=== PATIENT | male | born 1990 | race Caucasian/White ===

== ENCOUNTER 2023-10-26 13:14 | Emergency (ER) | payer OTHER, SELFPAY ==
--- NOTE | ~2023-10-26 | XR_ITS ---
EXAMINATION: XR ANKLE, LEFT CLINICAL INFORMATION: Ankle pain COMPARISON: None available. TECHNIQUE: AP, lateral, and mortise views of the left ankle. FINDINGS: No acute fracture or dislocation. Joint spaces are maintained. Soft tissues are unremarkable. Os trigonum. No tibiotalar joint effusion. XR/XR ankle LT min 3V IMPRESSION: * No acute osseous abnormality.
--- NOTE | ~2023-10-26 | XR_ITS ---
EXAMINATION: XR KNEE, RIGHT CLINICAL INFORMATION: Reason for Exam pain pop tear s/p fall COMPARISON: None TECHNIQUE: 4 views of the knee FINDINGS: No acute fracture or dislocation. Minimal osteoarthritis of the knee with small patellofemoral compartment osteophyte. Joint spaces are maintained. Postsurgical changes of the knee with and a button overlying the lateral femoral condyle and surgical screw tracks in the lateral femoral condyle and medial tibial plateau. Small suprapatellar joint effusion. Soft tissues are unremarkable. XR/XR knee RT 3V IMPRESSION: 1. No acute fracture or dislocation. 2. Small suprapatellar joint effusion. 3. Minimal degenerative changes of the knee. 4. Postsurgical changes of the knee.
--- NOTE | 2023-10-26 13:16 | ED_ITS ---
HPI - Extremity Injury (Lower) General Chief Complaint: Extremity Injury, Lower Stated Complaint: Fall today @ work - right leg injury Time Seen by Provider: 10/26/23 15:45 Source: patient and RN notes reviewed Mode of arrival: ambulatory Limitations: no limitations History of Present Illness HPI Narrative: This is a 33-year-old male presenting to the emergency department with complaints of left ankle and right knee pain status post mechanical fall which occurred at work today. Patient states that he accidentally slipped on ice and rolled his left ankle and heard a pop in his right knee. He states that he some resulted onto the road causing him to twist his left ankle and he immediately felt a pop and pain in his right knee. He states that he has not been able to fully bear weight on his right leg secondary to pain. He states that he has a history of a previous MCL surgery done at [facility] when he was a teenager. Denies taking any pain medication at home to treat his curre nt symptoms. No numbness or tingling. Denies hitting his head during this injury, no loss of consciousness. No headaches, dizziness, lightheadedness, chest pain or shortness of breath. No other complaints or concerns at this time. MD complaint: knee injury and ankle injury Related Data Previous Rx's Medication Instructions Recorded acetaminophen 500 mg tablet 1,000 mg (2 x 500 mg) PO Q6H PRN 10/26/23 (Tylenol Extra Strength) pain #30 tabs ibuprofen 600 mg tablet 600 mg PO Q6H PRN pain #30 tabs 10/26/23 oxycodone 5 mg tablet 5 mg PO Q6H PRN pain #5 tabs 10/26/23 Allergies Allergy/AdvReac Type Severity Reaction Status Date / Time No Known Allergies Allergy Verified 10/26/23 13:19 Review of Systems Review of Systems: Yes all other systems are reviewed and are negative Constitutional: Constitutional: Reports as per [facility] Past Medical History Attestation statement: The following information was validated with the patient. Social History Social History Advance Directives: No Advance Directives Information Provided: No Physical Exam Vital Signs: Vital Signs: Last Vital Signs Temp 98.4 F 10/26/23 15:43 Pulse 101 H 10/26/23 15:43 Resp 18 10/26/23 15:43 BP 147/102 H 10/26/23 15:43 Pulse Ox 98 10/26/23 15:43 O2 Del Method Room Air 10/26/23 15:43 BMI result Body Mass Index 39.3 Const: General: cooperative, comfortable and no acute distress Orientation/consciousness: patient oriented x3 Limitations: no limitations HEENT: Head: Yes normal to inspection, Yes normocephalic and Yes atraumatic Ears: hearing grossly normal bilaterally General nose exam: Normal external nose present Face and sinus: Yes normal facial exam Mouth: Normal oral and palatal mucosa present, oropharynx normal and moist mucous membranes Throat: Yes posterior oropharynx normal Eyes: General: appearance normal, both eyes and all related structures Eyelids: Yes eyelids normal Conjunctivae: conjunctivae normal Sclerae: sclerae normal Pupils: Equal, round and reactive pupils present EOM: EOMs intact bilaterally Neck: Neck: Yes normal visual inspection, Yes full ROM and Yes no lymphadenopathy Lymphatic: no lymphadenopathy noted Chest: Chest palpation & inspection: normal inspection of the chest Resp: Effort & Inspection: normal respiratory effort and able to speak in complete sentences Auscultation: clear to auscultation bilaterally, no crackles, no rales, no rhonchi and no wheezes Cardio: Rate: regular rate Rhythm: regular rhythm Heart sounds: S1 normal heart sound present and S2 normal heart sound present GI: Inspection: Yes normal to inspection Skin: General skin exam: no rashes or lesions noted Trauma: no lacerations or abrasions Wounds: no wounds Neuro: General: patient oriented x3 and moves all extremities Cranial nerves: Yes Equal, round and reactive pupils present Extrem: Other: Right knee is moderately edematous, with significant swelling on the medial aspect of the right knee. Able to flex knee to approximately 60? without pain. Pain with varus strain, no laxity with posterior anterior drawer test. No pain with valgus strain. No calf tenderness. No ecchymosis. Slight abrasion noted to the patella. Left ankle with edema and ecchymosis noted to the left lateral malleolus extending into the mid foot. Cobos and plantar flexion intact without pain, no tenderness palpation along the left 5th metatarsal are throughout the entire left foot. Distal sensation circulation intact. DP pulse 2 + General: Yes normal to inspection Right upper extremity: normal to inspection Left upper extremity: normal to inspection Right lower extr emity: normal to inspection Left lower extremity: normal to inspection Course Course Course Narrative: RME: 33 year-old M w/no sig PMHx presenting to the ED c/o R knee pain s/p slip and fall on ice. States L knee rolled and then heard R knee pop & tear denies head trauma or LOC Limping gait with cane, R knee w/noted swelling/effusion and superficial abrasion. Diffusely tender. Limited ROM. XR ordered Full HPI, ROS and PE to be performed by primary ED provider. Medications Administered Discontinued Medications Generic Name Dose Route Start Last Admin Trade Name Freq PRN Reason Stop Dose Admin Ibuprofen 600 mg 10/26/23 17:06 10/26/23 17:15 Ibuprofen 600 Mg Tablet PO 10/26/23 17:07 600 mg ONCE ONE Administration Medical Decision Making Medical Decision Making [facility] Narrative: This is a 33-year-old male presenting to the emergency department with complaints of left ankle pain and right knee pain status post mechanical fall which occurred earlier this morning. On arrival, vital signs within normal limits. Patient with right knee edema with tenderness with varus strain, no joint laxity. Physical exam findings concerning for internal derangement of the right knee. Left ankle with ecchymosis noted to the lateral malleolus, ankle is nontender. X-rays of the left ankle and right knee reveal no acute bony abnormalities. There is some joint effusion noted to the right knee as well as some edema noted to the ankle. Placed ankle and knee in Kaden wrap, given crutches as well as orthopedic follow-up. Patient did have surgery on his right knee as a teenager at [facility] therefore I advised patient to follow-up with them in their office, if he is unable to do so, he was also given [facility] for follow-up. Given return precautions. Patient understands and agrees with plan. Patient stable for discharge. Differential Diagnosis Differential Diagnoses: The differential diagnosis associated with the presentation includes Fracture, strain, sprain, contusion Radiology Impression Discussion of test interpretation with radiology: I have reviewed the radiologist's reading. Radiologist Impression: [address] [address] XRay Report Signed Patient: Harvinder Busby MR#: [id number] : 1990 Acct:[id number] Age/Sex: 33 / M ADM Date: 10/26/23 Loc: HO.ED Attending Dr: Ordering Physician: Mary Rios Date of Service: 10/26/23 Procedure(s): XR knee RT 3V Accession Number(s): [id number] cc: Kami Gates MD; Mary Rios~ EXAMINATION: XR KNEE, RIGHT CLINICAL INFORMATION: Reason for Exam pain pop tear s/p fall COMPARISON: None TECHNIQUE: 4 views of the knee FINDINGS: No acute fracture or dislocation. Minimal osteoarthritis of the knee with small patellofemoral compartment osteophyte. Joint spaces are maintained. Postsurgical changes of the knee with and a button overlying the lateral femoral condyle and surgical screw tracks in the lateral femoral condyle and medial tibial plateau. Small suprapatellar joint effusion. Soft tissues are unremarkable. XR/XR knee RT 3V IMPRESSION: 1. No acute fracture or dislocation. 2. Small suprapatellar joint effusion. 3. Minimal degenerative changes of the knee. 4. Postsurgical changes of the knee. EXAMINATION: XR ANKLE, LEFT CLINICAL INFORMATION: Ankle pain COMPARISON: None available. TECHNIQUE: AP, lateral, and mortise views of the left ankle. FINDINGS: No acute fracture or dislocation. Joint spaces are maintained. Soft tissues are unremarkable. Os trigonum. No tibiotalar joint effusion. XR/XR ankle LT min 3V IMPRESSION: * No acute osseous abnormality. Independent Historian Clinical information obtained from an independent historian. History obtained from or confirmed by: Parent Prescription Management I considered prescription management with: Pain Medication Discharge Plan Discharge Clinical Impression: Ankle sprain and strain, Acute internal derangement of knee, Acute knee pain Patient Disposition: Home, Self-Care Instructions: Ankle Sprain (ED), Crutch Instructions (ED) Additional Instructions: You were seen in the emergency department due to left ankle pain and right knee pain. Your x-ray of your right knee shows swelling, no bony abnormalities. Your left ankle does not show any broken bones. It is unclear whether or not you have a ligament injury in your right knee, you will need to follow-up with orthopedics outpatient to get a MRI for further imaging and treatment. You also have a left ankle sprain, this does take several weeks to up to several months for it to get better. Rest, ice, use Kaden wrap, and elevate both of your legs to reduce the swelling. Continue to perform gentle range of motion of your knee as well as your left ankle.. Take ibuprofen, Tylenol as needed for pain and symptoms. I am also prescribing oxycodone, only take this for severe pain only. This will cause drowsiness, do not drink alcohol or drive. If you do not have severe pain after taking ibuprofen and Tylenol, do not take this medication as it is addictive. Follow-up with Orthopedics, I would follow-up with [facility] as you previously saw them in the past for your right knee. If you are unable to see them in their office, you may follow-up with [facility], call to make an appointment. If any new or worsening symptoms occur including but not limited to severe pain, calf pain, chest pain or shortness breast, please return for re-evaluation. Prescriptions: New ibuprofen 600 mg tablet 600 mg PO Q6H PRN (Reason: pain) Qty: 30 0RF acetaminophen [Tylenol Extra Strength] 500 mg tablet 1,000 mg PO Q6H PRN (Reason: pain) Qty: 30 0RF Rx Instructions: Do not exceed 4g in 24 hours. oxycodone 5 mg tablet 5 mg PO Q6H PRN (Reason: pain) Qty: 5 0RF Rx Instructions: Partial Fill upon patient request. Referrals: [facility] [Provider Group] Stand Alone Forms: Work/School Release Interventions: ED Discharge Assessment Last Done: 10/26/23 18:22 Discharge Date/Time: 10/26/23 18:22
[2023-10-26 13:17] VITALS: BP 150/111; PULSE 105; RESP 20; TEMP 36.6; O2SAT 98; BMI 39.3
[2023-10-26 15:43] VITALS: BP 147/102; PULSE 101; RESP 18; TEMP 36.9; O2SAT 98
[2023-10-26] MEDS: Ibuprofen 600 MG TABLET PO (17:15)
== END 2023-10-26 18:22 | disposition home or self-care (01) ==
PROVIDERS: Emergency Provider Emergency Medicine; PCP Family Medicine
DX: S93.402A Sprain of unspecified ligament of left ankle, initial encounter (principal); M23.92 Unspecified internal derangement of left knee; M25.562 Pain in left knee; W00.0XXA Fall on same level due to ice and snow, initial encounter; Y93.9 Activity, unspecified; Y92.9 Unspecified place or not applicable; Y99.0 Civilian activity done for income or pay
CPT/HCPCS: 73562; 73610; 99283; 99284